=== PATIENT | female | born 1940 | race Caucasian/White ===

== ENCOUNTER → 2016-08-05 | Outpatient (CLI) | payer MEDICARE, BC ==
[~2016-08-05] MED LIST: ARTHRITIS PAIN650 M2 PO; ASPIR-LOW81 MG PO; CEFDINIR300 MG PO; DOXYCYCLINE MO100 M1 PO; LABETALOL HCL200 MG PO; METOPROLOL SUCC50 MG PO; MIRALAX17 GM PO; PROTONIX 40 MG40 M1 PO; SIMVASTATIN10 MG PO; VENTOLIN HFA 66.7 GM INH; VITAMIN D10000 UNIT PO; VITAMIN D250000 UNIT PO; ZANTAC300 MG PO
== END ==
LOC: KOH-I 11:20
DX: R63.4 Abnormal weight loss (principal); R06.02 Shortness of breath; J98.11 Atelectasis
CPT/HCPCS: 71020